=== PATIENT | female | born 1970 ===

== ENCOUNTER 2017-04-17 23:19 | Inpatient (IN) | payer OTHER ==
[~2017-04-17] VITALS: Ht 157.5 cm; Wt 80.1 kg
[2017-04-18] VITALS (18 sets, daily range): BP systolic 85–114; BP diastolic 47–67
--- NOTE | 2017-04-18 06:24 | History & Physical Report ---
Admission Admit Date 04/18/17 Information Source Information Source: Spouse/Partner Reliability: Fair History Chief Complaint altered mental status History of Present Illness Patient is a 46 year old female with a pmh of non-alcoholic liver cirrhosis and diabetes mellitus that is presenting with altered mental status that began this morning. Patient has been alternating between being ill and well for the past couple of weeks. The describes the patient coming home from work usually early due to slurred speech and altered mental status. The patient is usually minimally responsive and sleeps throughout the night and wakes up in her usual state of mind. This has been going on for the past few weeks, and patient when she wakes up in the morning is usually more alert than before. Patient has been continuing like this for the past few weeks and she has been normalizing by the morning time. Patient has been continuing like this for quite some time but this has not caused any major problems. Patient last night was seen to have the same occurence happen, and when she woke up in the morning the patient was equally confused and non responsive. She was complaining that she couldnt see and was not making sense. Patient was brought to the ER, and the patient was found to be acutely confused, and later found to be minimally responsive and hypotensive. Patient was so hypotensive that a central line was placed and patient was started on vasopressors. It was then decided that the patient should be admitted to the ICU. Patient History 1. Hyperammonemia 2. Liver cirrhosis 3. Hypotension 4. Altered mental status Social History Patient lives at home on the [facility] with her and two children. She manages all her ADLs independetly. She does not smoke, drink or use illicit substances. 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 Family History MOTHER Diabetes Advance Directive None Medications and Allergies Medications Home Medications Ferrous sulfate 325 mg daily Sucralafate 1 gram daily omeprazole 40 mg daily forosemide 40 mg daily nadolol 40 mg daily spiranolactone 100 mg daily Current Medications Sig/[place] Start time Last Medication Dose Route Stop Time Status Admin Hydromorphone HCl 1 MG Q6H PRN 04/18 600 UNV IV Lactulose 30 GM TID 04/18 600 UNV GA Pantoprazole Sodium 40 MG DAILY@00 04/18 600 UNV IV Sodium Chloride 1,000 ML ASDIRECTED 06/04 0600 UNV IV Allergies Coded Allergies: Amoxicillin (From AUGMENTIN) (04/18/17) Aspirin (RASH 04/18/17) Clavulanic Acid (From AUGMENTIN) (04/18/17) Physical Exam Vital Signs / I&Os Vital Signs Date Time Temp Pulse Resp B/P Pulse O2 O2 Flow FiO2 Ox Delivery Rate 04/18 611 97.3 57 11 96/49 99 Room Air General Appearance - obtunded, no acute distress, withdraws from pain, answers non-meaningully to voice HEENT Atraumatic, PERRLA, Moist mucous membranes, - poor dentition Lungs Clear to auscultation, Normal air movement Neck No JVD, No masses, No thyromegaly Cardiovascular Regular rate and rhythm, No murmurs, gallops, rubs Abdomen Soft, - distended abdomen - positive fluid wave - no evidence of bruising Extremities No clubbing, Normal pulses, No tenderness, Osvaldo's sign negative, - trace edema in lower extremities Skin No Breakdown Neurological Sensation intact, Cranial nerves intact, No lateralizing signs Psych/Mental Status Confused LAB Results Laboratory Tests 04/17 04/17 04/17 04/18 2330 2330 2350 0000 Chemistry Plasma Sodium (136 - 145 mmol/L) 138 Plasma Potassium (3.5 - 5.1 mmol/L) 4.3 Plasma Chloride (98 - 107 mmol/L) 105 CO2 (Enzymatic) (21 - 32 mmol/L) 25 BUN (7 - 18 mg/dL) 24 Creatinine (0.6 - 1.3 mg/dL) 2.1 Est GFR ( Amer) (mL/min) 32.38 Est GFR (Non-Af Amer) (mL/min) 26.72 Glucose (70 - 110 mg/dL) 142 Plasma Calcium (8.5 - 10.1 mg/dL) 8.4 Total Bilirubin (0.0 - 1.0 mg/dL) 1.5 AST (15 - 37 U/L) 31 ALT (12 - 78 U/L) 24 Alkaline Phosphatase (46 - 116 U/L) 135 Ammonia (11 - 32 umol/L) 115 Total Protein (6.4 - 8.2 g/dL) 7.6 Albumin (3.3 - 5.0 g/dL) 2.1 Amylase (25 - 115 U/L) 34 Lipase (73 - 393 U/L) 160 Coagulation INR (0.8 - 1.2) 1.2 APTT (24 - 34 SECONDS) 29 Hematology WBC (4.5 - 11.5 K/uL) 4.0 RBC (4.00 - 5.20 M/uL) 3.22 Hgb (12.0 - 16.0 gm/dL) 9.7 Hct (36.0 - 46.0 %) 29.1 MCV (80 - 100 fL) 90 MCH (26 - 34 pg) 30 RDW (11.6 - 14.8 %) 14.7 Gran % (53 - 90) 73.7 Lymph % (Auto) (25 - 40 %) 19.5 [place] % (Auto) (3 - 14 %) 6.8 Plt Count, EDTA (150 - 400 K/uL) 83 PUBS MCHC (31 - 37 g/dL) 33 Serology Hepatitis A Ab Total Pending Hep Bs Antigen Pending Hep Bs Antibody Pending Hep B Core Total Ab Pending Hepatitis C Antibody Pending Toxicology Urine Opiates Screen (NEGATIVE) NEGATIVE Urine Methadone Screen (NEGATIVE) NEGATIVE Ur Barbiturates Screen (NEGATIVE) NEGATIVE U Amphetamin/Meth Scrn (NEGATIVE) NEGATIVE MDMA (Ecstasy) Screen (NEGATIVE) NEGATIVE U Benzodiazepines Scrn (NEGATIVE) NEGATIVE Urine Cocaine Screen (NEGATIVE) NEGATIVE U Cannabinoids Screen (NEGATIVE) NEGATIVE Urines Urine Color YELLOW Urine Appearance CLEAR Urine pH (5.0 - 8.0) 6.0 Ur Specific [place] (1.010 - 1.030) 1.010 Urine Protein (NEGATIVE) NEGATIVE Urine Ketones (NEGATIVE) NEGATIVE Urine Blood (NEGATIVE) NEGATIVE Urine Nitrite (NEGATIVE) NEGATIVE Urine Bilirubin (NEGATIVE) NEGATIVE Urine Urobilinogen (0.2 - 1.0 EU/dL) 0.2 Ur Leukocyte Esterase (NEGATIVE) NEGATIVE Urine RBC (0 - 1 rbc/hpf) 0-1 Urine WBC (0 - 1 wbc/hpf) 0-1 Ur Epithelial Cells (0 - 5 EPI/hpf) 1-3 Urine Bacteria (NONE SEEN) NONE SEEN Urine Glucose (NEGATIVE) NEGATIVE Urine Comment CULT NOT INDICATED Assessment and Plan Problem List 1. Altered mental status Plan - 1 day history of altered mental status - most likely due to hyper ammonia - pt is responsive to pain and voice - currently will treat as hyper ammonia - no evidence of other neurological deficits 2. Hyperammonemia Plan - never treated - pt has never taken lactulose - elevated ammonia secondary to non-alcoholic liver cirrhosis 3. Liver cirrhosis Plan - pt has an established history of liver cirrhosis - in the process of being treated however pt has just done genotyping - pt on spiranolactone, ferrous sulfate, nadalol, furosemide however patient has never taken lactulose or rifaxamin - will begin ammonia reduction treatment 4. Hypotension Plan - pt has been getting progressively more hypotensive through her hosptial stay - there is no evidence of blood loss, infection, or neuroloical dysfunction which can be leading to this - will obtain lactate, procalcitonin, blood cultures - will place on vasopressors - central line placed and confirmed - will continuously monitor
--- NOTE | 2017-04-18 07:09 | Progress Note ---
Subjective General Note Date: April 18, 2017 Admission Date: April 18, 2017 Hospital Day: 1 PCP: Unknown Status: Inpatient, CCU Advanced Directive: FULL CODE Room: 304 Admission History: The patient is a 46-year-old female with a significant past medical history of cirrhosis secondary to hepatitis C, esophageal varices, who presented to [facility] emergency department on the day of admission secondary to complaints of mental status changes. [facility] ER evaluation was consistent with hepatic encephalopathy with associated hypotension. Secondary to the above, the patient was admitted by Andrew Seo M.D. for further evaluation and treatment. For other history present illness, past medical history, family history, social history, review of systems, and admission physical examination please see the patient's history and physical examination and ER visit note in the patient's medical record. Subjective: The patient remains confused and minimally responsive. Slight verbal interaction intermittently. Patient requests: None Medications and Allergies Medications Current Medications Sig/Albina Start time Last Medication Dose Route Stop Time Status Admin Lactulose 30 GM TID 04/18 645 AC HI Pantoprazole Sodium 40 MG DAILY@0600 04/18 645 AC IV Hydromorphone HCl 1 MG Q6H PRN 04/18 600 AC IV Sodium Chloride 1,000 ML ASDIRECTED 04/18 600 AC IV Allergies Coded Allergies: Amoxicillin (From AUGMENTIN) (Severe, 04/18/17) Aspirin (Severe, RASH 04/18/17) Clavulanic Acid (From AUGMENTIN) (Severe, 04/18/17) Physical Exam Vital Signs / I&Os Vital Signs Date Time Temp Pulse Resp B/P Pulse O2 O2 Flow FiO2 Ox Delivery Rate 04/18 623 Room Air 04/18 611 97.3 57 11 96/49 99 Room Air General Appearance Cooperative, No acute distress, lethargic, minimally responsive to verbal commands/questioning. Confused Lungs Clear to auscultation, Normal air movement Cardiovascular Regular rate and rhythm, Normal S1 and S2 Abdomen Normal bowel sounds, Soft, No tenderness Extremities No cyanosis, No clubbing Neurological Cranial nerves intact, Strength 5/5 x4 ext's, No lateralizing signs Psych/Mental Status Confused, lethargic. LAB Results Laboratory Tests 04/18 04/17 04/17 04/17 0000 2350 2330 2330 Chemistry Plasma Sodium (136 - 145 mmol/L) 138 Plasma Potassium (3.5 - 5.1 mmol/L) 4.3 Plasma Chloride (98 - 107 mmol/L) 105 CO2 (Enzymatic) (21 - 32 mmol/L) 25 BUN (7 - 18 mg/dL) 24 Creatinine (0.6 - 1.3 mg/dL) 2.1 Est GFR ( Amer) (mL/min) 32.38 Est GFR (Non-Af Amer) (mL/min) 26.72 Glucose (70 - 110 mg/dL) 142 Plasma Calcium (8.5 - 10.1 mg/dL) 8.4 Total Bilirubin (0.0 - 1.0 mg/dL) 1.5 AST (15 - 37 U/L) 31 ALT (12 - 78 U/L) 24 Alkaline Phosphatase (46 - 116 U/L) 135 Ammonia (11 - 32 umol/L) 115 Total Protein (6.4 - 8.2 g/dL) 7.6 Albumin (3.3 - 5.0 g/dL) 2.1 Amylase (25 - 115 U/L) 34 Lipase (73 - 393 U/L) 160 Coagulation INR (0.8 - 1.2) 1.2 APTT (24 - 34 SECONDS) 29 Hematology WBC (4.5 - 11.5 K/uL) 4.0 RBC (4.00 - 5.20 M/uL) 3.22 Hgb (12.0 - 16.0 gm/dL) 9.7 Hct (36.0 - 46.0 %) 29.1 MCV (80 - 100 fL) 90 MCH (26 - 34 pg) 30 RDW (11.6 - 14.8 %) 14.7 Gran % (53 - 90) 73.7 Lymph % (Auto) (25 - 40 %) 19.5 [place] % (Auto) (3 - 14 %) 6.8 Plt Count, EDTA (150 - 400 K/uL) 83 PUBS MCHC (31 - 37 g/dL) 33 Serology Hepatitis A Ab Total Pending Hep Bs Antigen Pending Hep Bs Antibody Pending Hep B Core Total Ab Pending Hepatitis C Antibody Pending Toxicology Urine Opiates Screen (NEGATIVE) NEGATIVE Urine Methadone Screen (NEGATIVE) NEGATIVE Ur Barbiturates Screen (NEGATIVE) NEGATIVE U Amphetamin/Meth Scrn (NEGATIVE) NEGATIVE MDMA (Ecstasy) Screen (NEGATIVE) NEGATIVE U Benzodiazepines Scrn (NEGATIVE) NEGATIVE Urine Cocaine Screen (NEGATIVE) NEGATIVE U Cannabinoids Screen (NEGATIVE) NEGATIVE Urines Urine Color YELLOW Urine Appearance CLEAR Urine pH (5.0 - 8.0) 6.0 Ur Specific [place] (1.010 - 1.030) 1.010 Urine Protein (NEGATIVE) NEGATIVE Urine Ketones (NEGATIVE) NEGATIVE Urine Blood (NEGATIVE) NEGATIVE Urine Nitrite (NEGATIVE) NEGATIVE Urine Bilirubin (NEGATIVE) NEGATIVE Urine Urobilinogen (0.2 - 1.0 EU/dL) 0.2 Ur Leukocyte Esterase (NEGATIVE) NEGATIVE Urine RBC (0 - 1 rbc/hpf) 0-1 Urine WBC (0 - 1 wbc/hpf) 0-1 Ur Epithelial Cells (0 - 5 EPI/hpf) 1-3 Urine Bacteria (NONE SEEN) NONE SEEN Urine Glucose (NEGATIVE) NEGATIVE Urine Comment CULT NOT INDICATED Microbiology Date/Time Procedure - Status Source Growth 04/18 UNK MRSA Screen - ORD NOSE 04/18 UNK Blood Culture - ORD BLOOD 04/18 UNK Blood Culture - ORD BLOOD Assessment and Plan Problem List 1. Hepatic encephalopathy Status Acute Onset Date Unknown Plan -Patient presents with findings consistent with hepatic encephalopathy. -Serum ammonia level significantly elevated at 115 -Lactulose 20 g by mouth 3 times a day -Rifaximin 400 mg by mouth 3 times a day -Consider GoLYTELY if patient taking well orally -Monitor 2. Hypotension Plan -Patient with hypotension requiring aggressive fluid therapy/pressor agents- Levophed -Continue IV fluid/Levophed -BP 108/62 mmHg -No signs of sepsis/infection -No clear etiology of hypotension other than wanting contraction -Monitor 3. Liver cirrhosis Plan -Patient with history of cirrhosis -Hepatic encephalopathy as noted above -Continue lactulose, rifaximin, Aldactone/Lasix as necessary, nadolol. 4. Esophageal varices Status Chronic Onset Date Unknown Plan -No evidence of bleeding at this time -Monitor serial H&H -Continue outpatient therapy Current status: Critical, unstable Anticipated discharge date: Anticipated discharge in 3-4 days Anticipated discharge placement: Home Patient care time: Time in chart review, patient interview, physical exam, CPOE, and care documentation: 35 mins Visit to patient today: 2 Complexity of care: High DVT prophylaxis: SCD E&M Codes Rounding: Inpt-High/[id number]
--- NOTE | 2017-04-18 07:30 | DIAGNOSTIC IMAGING REPORT ---
PROCEDURE: CT ABDOMEN/PELVIS W/O CONTRAST INDICATION: ABDOMINAL DISTENTION TECHNIQUE: Axial CT images were obtained through the abdomen and pelvis without IV contrast. Coronal and sagittal reformations were created. Contrast not used given GFR below 30. COMPARISON: None. FINDINGS: Small left pleural effusion. Mild bibasilar atelectasis. Small hiatal hernia. Probable small esophageal varices. Normal sized heart. The gallbladder surgically absent. The right lobe of the liver is diminutive and the left and caudate lobe are mildly hypertrophic. Recanalized umbilical vein. Moderate heterogeneity throughout the hepatic parenchyma. Slight parenchymal heterogeneity in the enlarged spleen posteriorly. The spleen is enlarged measuring 12.8 x 15.8 cm. Moderate perihepatic and perisplenic ascites. Unenhanced appearance of adrenal glands, pancreas, kidneys, and retroperitoneal vessels is grossly normal. There is fat stranding in the congestion throughout the omentum and mesenteric fat. Occasional fluid levels are seen in nondistended bowel loops. There is an umbilical hernia with a narrow neck measuring about 10 mm which contains ascites fluid. The hernia sac measures approximately 8.6 x 4.9 x 7.0 cm. There is a Manuel catheter in the urinary bladder. Moderate pelvic ascites. The unenhanced appearance of the uterus, ovaries, pelvic vessels, and pelvic bowel loops is normal. Normal appendix. No suspicious pelvic mass. Intact osseous structures. IMPRESSION: 1. Chronic-appearing findings of hepatic cirrhosis and portal hypertension including ascites. 2. Heterogeneous hepatic parenchyma which can be seen in nodular regeneration or hepatic neoplasm. Correlation with AFP level and cross-sectional imaging (dynamic MRI or three phase CT) with contrast when the patient is able is recommended. 3. Fluid-containing, narrow necked umbilical hernia. 4. Upper abdominal varicosities and probable esophageal varices. 5. Preliminary report by Dr. Kelvin Garcia of [facility] radi[facility]. All CT scans at this facility use dose modulation, iterative reconstruction, and/or weight-based dosing when appropriate to reduce radiation dose to as low as reasonably achievable.
--- NOTE | 2017-04-18 07:34 | DIAGNOSTIC IMAGING REPORT ---
PROCEDURE: XR CHEST 1 VIEW INDICATION: COUGH TECHNIQUE: Single view chest. 02:07 hours COMPARISON: None. FINDINGS: Right-sided IJ central venous line is present. The tip is low, within the right atrioventricular junction region. The right diaphragm is asymmetrically elevated crowding of the bronchovascular markings. No significant central venous congestion. The visible lung guevara are clear. There are probable bibasilar atelectatic changes, minimal. Surgical clips in the gallbladder fossa. Intact osseous structures. IMPRESSION: 1. Low position of right central line. This should be withdrawn. Follow-up film has been acquired. 2. Asymmetric right diaphragm elevation. 3. Probable mild bibasilar atelectasis.
--- NOTE | 2017-04-18 07:35 | DIAGNOSTIC IMAGING REPORT ---
PROCEDURE: XR CHEST 1 VIEW INDICATION: COUGH TECHNIQUE: Single view chest. 04:31 hours COMPARISON: 02:07 hours FINDINGS: The right IJ central venous line has been withdrawn and the tip is now at the distal SVC. Cardiomediastinal contour and central vessels are stable. Right diaphragm remains elevated. No new central venous congestion. Probable bibasilar atelectatic changes. Upper lung zones are aerated. Intact osseous structures. IMPRESSION: 1. Improved position of right IJ central venous line. 2. Stable heart and lungs with elevated right hemidiaphragm.
[2017-04-18] MEDS ORDERED: FE GLUCONATE325 MG PO (07:36)
[2017-04-18] MEDS ORDERED: FUROSEMIDE40 MG PO (07:37)
[2017-04-18] MEDS ORDERED: CORGARD20 MG PO (07:37)
[2017-04-18] MEDS ORDERED: PRILOSEC20 MG PO (07:38)
[2017-04-18] MEDS ORDERED: SPIRONOLACTONE25 MG PO (07:38)
[2017-04-18] MEDS ORDERED: CARAFATE EQUIVAL1 GM PO (07:39)
--- NOTE | 2017-04-18 07:42 | ED DISCHARGE INSTRUCTIONS ---
Patient: ZULY MATTHEW General Instructions [facility] VisitID: [id number] [address] [place] [address] 46y, F Registration Date/Time: 04/17/2017 Acute mental status change with stupor. Primary biliary cirrhosis of the liver. (Hyperammonianemia). (Electronically signed by Kyree Bourgeois Dr. 04/18/2017 7:41)
--- NOTE | 2017-04-18 07:42 | ED MAR SUMMARY ---
..... Medication Administration Record [facility] [address] [place] [address] Patient: ZULY MATTHEW Visit ID: [id number] 46y, F Weight: 90.7 kg Height/Length: 61 in BMI: 37.8 ALLERGIES: Augmentin, Aspirin Start 23:45 04/17/2017 Lucina Ratliff R.N., Stop 00:45 04/18/2017 Lucina Ratliff R.N. Medication Administered: IV NS (SALINE), Dose: IV Fluids over 1 hour(s), Bolus: 1000 mL wide open, Dispensed: 1000 mL bag, Site: #1 right AC. Medication Ordered: IV NS : initial bolus none -, then 1000 mL/hr for X1 (NOW). Given 01:06 04/18/2017 Lucina Ratliff R.N. Medication Administered: ZOFRAN [IVP] (ONDANSETRON HCL), Dose: 4 mg IVP over 2 minute(s), Site: #1 right AC. Medication Ordered: Zofran IV 4 mg (NOW). Start 02:38 04/18/2017 Lucina Ratliff R.N., Continued Upon Admission 05:44 04/18/2017 Lucina Ratliff R.N. Medication Administered: LEVOPHED [IV DRIP] (NOREPINEPHRINE BITARTRATE), Dose: 0.5 mcg Drip IV over 135 hour(s), Dispensed: 250 mL bag, Site: #2 central line(see procedure note). Medication Ordered: Levophed Drip IV : 0.5-12 mcg/min (HIGH ALERT MEDICATION, NOW). Start 03:10 04/18/2017 Lucina Ratliff R.N., Continued Upon Disposition 05:47 04/18/2017 Lucina Ratliff R.N. Medication Administered: IV NS (SALINE), Dose: IV Fluids over 5 hour(s), Rate: 200 mL/hr, Dispensed: 1000 mL bag, Site: #2 central line(see procedure note). Medication Ordered: IV NS with Normal Saline 1 Liter: initial bolus none -, then 200 mL/hr for X1 (NOW). Start 05:49 04/18/2017 Lucina Ratliff R.N., Continued Upon Admission 05:52 04/18/2017 Lucina Ratliff R.N. Medication Administered: CEFTRIAXONE [IVPB], Dose: 1 gm IVPB over 20 minute(s), Dispensed: 50 mL bag, Site: #1 right . Medication Ordered: Ceftriaxone IV 1 gm/50mL (NOW).
--- NOTE | 2017-04-18 07:42 | ED MED RECONCILIATION SUMMARY ---
Patient: ZULY MATTHEW Medication Reconciliation Report [facility] VisitID: [id number] [address] [place] [address] 46y, F Registration Date/Time: 04/17/2017 Weight: 90.7 kg Height/Length: 61 in. BMI: 37.8 ALLERGIES: Aspirin, Augmentin The patient's Home Medications are listed below: THE FOLLOWING MEDICATIONS NEED TO BE RECONCILED: Ferrous Gluconate Oral (325 (36 Fe) mg) 1 tablet Furosemide Oral (40 mg) 1 tablet, daily Nadolol Oral (20 mg) 2 tablets, daily Omeprazole Oral 20 mg, 2x a day Spironolactone Oral (100 mg) 1 tablet, daily Sucralfate Oral (1 gm) 1 tablet, 4x a day The source(s) of the original Home Medication information: Not obtained. The following Medications were given to the patient in the Emergency Department: IV NS IV Fluids bolus 1000 mL wide open, administered: 04/17/2017 11:45:00 PM Zofran [IVP] IVP 4 mg, administered: 04/18/2017 1:06:00 AM Levophed [IV DRIP] Drip IV bolus 0, then 0.5 mcg, administered: 04/18/2017 2:38:00 AM IV NS IV Fluids bolus 0, then 200 mL/hr, administered: 04/18/2017 3:10:00 AM Ceftriaxone [IVPB] IVPB bolus 0, then 1 gm, administered: 04/18/2017 5:49:00 AM The following Medications were prescribed to the patient: None.
--- NOTE | 2017-04-18 07:42 | ED DISCHARGE INSTRUCTIONS ---
Patient: ZULY MATTHEW General Instructions [facility] VisitID: [id number] [address] [place] [address] 46y, F Registration Date/Time: 04/17/2017 Acute mental status change with stupor. Primary biliary cirrhosis of the liver. (Hyperammonianemia). (Electronically signed by Kyree Bourgeois Dr. 04/18/2017 7:41)
--- NOTE | 2017-04-18 07:42 | ED MAR SUMMARY ---
..... Medication Administration Record [facility] [address] [place] [address] Patient: ZULY MATTHEW Visit ID: [id number] 46y, F Weight: 90.7 kg Height/Length: 61 in BMI: 37.8 ALLERGIES: Augmentin, Aspirin Start 23:45 04/17/2017 Lucina Ratliff R.N., Stop 00:45 04/18/2017 Lucina Ratliff R.N. Medication Administered: IV NS (SALINE), Dose: IV Fluids over 1 hour(s), Bolus: 1000 mL wide open, Dispensed: 1000 mL bag, Site: #1 right AC. Medication Ordered: IV NS : initial bolus none -, then 1000 mL/hr for X1 (NOW). Given 01:06 04/18/2017 Lucina Ratliff R.N. Medication Administered: ZOFRAN [IVP] (ONDANSETRON HCL), Dose: 4 mg IVP over 2 minute(s), Site: #1 right AC. Medication Ordered: Zofran IV 4 mg (NOW). Start 02:38 04/18/2017 Lucina Ratliff R.N., Continued Upon Admission 05:44 04/18/2017 Lucina Ratliff R.N. Medication Administered: LEVOPHED [IV DRIP] (NOREPINEPHRINE BITARTRATE), Dose: 0.5 mcg Drip IV over 135 hour(s), Dispensed: 250 mL bag, Site: #2 central line(see procedure note). Medication Ordered: Levophed Drip IV : 0.5-12 mcg/min (HIGH ALERT MEDICATION, NOW). Start 03:10 04/18/2017 Lucina Ratliff R.N., Continued Upon Disposition 05:47 04/18/2017 Lucina Ratliff R.N. Medication Administered: IV NS (SALINE), Dose: IV Fluids over 5 hour(s), Rate: 200 mL/hr, Dispensed: 1000 mL bag, Site: #2 central line(see procedure note). Medication Ordered: IV NS with Normal Saline 1 Liter: initial bolus none -, then 200 mL/hr for X1 (NOW). Start 05:49 04/18/2017 Lucina Ratliff R.N., Continued Upon Admission 05:52 04/18/2017 Lucina Ratliff R.N. Medication Administered: CEFTRIAXONE [IVPB], Dose: 1 gm IVPB over 20 minute(s), Dispensed: 50 mL bag, Site: #1 right . Medication Ordered: Ceftriaxone IV 1 gm/50mL (NOW).
--- NOTE | 2017-04-18 07:42 | ED CLINICAL REPORT ---
Clinical Report - Physicians/Mid Levels [facility] [address] [place] [address] 04/17/2017 23:23 Patient: ZULY MATTHEW Time Seen: 23:39; initial patient contact. Arrived- By private vehicle. Historian- family. HISTORY OF PRESENT ILLNESS Chief Complaint: CHANGED MENTAL STATUS. The patient has been disoriented and is described as having decreased responsiveness. This started today and is still present. It was gradual in onset and has been intermittent. No alcohol recently, recent drug use or medication given prior to arrival. The patient has had difficulty walking. Usually is alert and oriented X3 and usually has normal mobility. Similar symptoms previously: Many times. Recent medical care: The patient was seen recently by a health care provider (Hospitalized in [place] for liver failure, family states she has cirrhosis possibly due to hepatitis). REVIEW OF SYSTEMS No fever, headache, head injury, dizziness or blurred vision. No abdominal pain, nausea, diarrhea or vomiting. All systems otherwise negative, except as recorded above. PAST HISTORY ( Diabetes Mellitus GI Bleeding. Liver disease. SURGERIES: Cholecystectomy). Medications: Ferrous Gluconate Oral (Tablet 325 (36 Fe) mg) 1 tablet. Omeprazole Oral 20 mg, 2x a day. Sucralfate Oral (Tablet 1 gm) 1 tablet, 4x a day. Nadolol Oral (Tablet 20 mg) 2 tablets, daily. Furosemide Oral (Tablet 40 mg) 1 tablet, daily. Spironolactone Oral (Tablet 100 mg) 1 tablet, daily. Allergies: Aspirin. Definite Severe(rash) Augmentin. SOCIAL HISTORY Never smoker. No alcohol use or drug use. ADDITIONAL NOTES The nursing notes have been reviewed. PHYSICAL EXAM Vital Signs: 04/18/2017 00:19 BP: 85/47. HR: 99. RR: 18. O2 saturation: 100%. Pain level now: 0. 04/17/2017 23:55 BP: 91/54. HR: 80. RR: 16. O2 saturation: 100%. Pain level now: 0. 04/17/2017 23:26 BP: 92/53. HR: 83. RR: 16. O2 saturation: 100%. Temp: 98.2 F. Pain level now: 0/10. Have been reviewed. Hypotensive. Heart rate normal. Respiratory rate normal. Temperature normal. Oxygen saturation normal. Appearance: The patient is obtunded. ENT: Dry mucous membranes present. Neck: Normal inspection. CVS: Normal heart rate and rhythm. Heart sounds normal. Respiratory: No respiratory distress. Breath sounds normal. Abdomen: Soft. Mild tenderness diffusely. Mild hepatomegaly. Back: Normal inspection. Rectal: Rectal exam normal. (Heme negative). Skin: Skin warm and dry. Extremities: No lower extremity edema. Neuro: Altered mental status: lethargic. LABS, X-RAYS, AND EKG EKG: EKG time: (2347). No acute process. No acute ischemia. Normal EKG. Normal sinus rhythm. Rate: 74. Normal P waves. Normal GREGOR. Normal QRS complex. Normal axis. Normal ST and T waves. Prolonged QTc (475). Prior EKG unavailable. The study has been interpreted contemporaneously by me. The study has been independently viewed by me. The EKG appears to be a good tracing. I agree with and confirm the computer reading of the EKG. Interpretation time: 2347. Chest X-ray: (No PTX, Central line tip in RA). Views: AP. The X-rays were independently viewed by me and interpreted contemporaneously by me. Prior films were not available for comparison. Interpretation time: 204. Chest X-ray #2: (Tip of TLC in distal SVC). Views: AP. The X-rays were independently viewed by me and interpreted contemporaneously by me. A comparison with prior films reveals that the findings are improved. CT Abdomen - Pelvis: Advanced cirrhosis mod-lge ascites 8.5 cm ventral wall hernia w/ fluid Small, left pleural effuasion. Study type: upper abdomen; lower abdomen; pelvis. Abdomen - pelvic CT performed without contrast. The study was independently viewed by me, interpreted by the radiologist and discussed with the radiologist. Prior studies were not available for comparison. Laboratory Tests: UA-Culture if indicated: (JAHAIRA: 04/17/2017 23:50) ( MsgRcvd 04/18/2017 00:30) Final results Test Result Flag Units (Reference) URINE COLOR YELLOW URINE APPEARANCE CLEAR URINE GLUCOSE NEGATIVE (NEGATIVE) URINE BILIRUBIN NEGATIVE (NEGATIVE) URINE KETONE NEGATIVE (NEGATIVE) URINE SPECIFIC GRAVITY 1.010 (1.010-1.030) URINE PH 6.0 (5.0-8.0) URINE PROTEIN NEGATIVE (NEGATIVE) URINE UROBILINOGEN 0.2 EU/dL (0.2-1.0) URINE NITRITE NEGATIVE (NEGATIVE) URINE BLOOD NEGATIVE (NEGATIVE) URINE LEUK ESTERASE NEGATIVE (NEGATIVE) URINE RBC 0-1 rbc/hpf (0-1) URINE WBC 0-1 wbc/hpf (0-1) URINE EPITHELIAL CELLS 1-3 EPI/hpf (0-5) URINE BACTERIA NONE SEEN (NONE SEEN) URINE COMMENT CULT NOT INDICATED URINE CULTURES ARE SET-UP BASED ON THE FOLLOWING CRITERIA:POSITIVE NITRITEPOSITIVE LEUKOCYTE ESTERASEGREATER THAN 10 WHITE BLOOD CELLSMODERATE (2+) OR GREATER BACTERIA CBC w Diff: (JAHAIRA: 04/17/2017 23:30) ( [facility] 04/17/2017 23:59) Final results Test Result Flag Units (Reference) WHITE BLOOD COUNT 4.0 L K/uL (4.5-11.5) RED BLOOD COUNT 3.22 L M/uL (4.00-5.20) HEMOGLOBIN 9.7 L gm/dL (12.0-16.0) HEMATOCRIT 29.1 L % (36.0-46.0) MEAN CELL VOLUME 90 fL (80-100) MEAN CORPUSCULAR HGB 30 pg (26-34) MEAN CORPUSCULAR HGB CONC 33 g/dL (31-37) RED CELL DISTRIBUTION WIDTH 14.7 % (11.6-14.8) PLATELET COUNT 83 L K/uL (150-400) LYMPH % 19.5 L % (25-40) MONO % 6.8 % (3-14) GRANULOCYTE % 73.7 (53-90) PT with INR: (JAHAIRA: 04/17/2017 23:30) ( [facility] 04/17/2017 23:55) Final results Test Result Flag Units (Reference) INR 1.2 (0.8-1.2) Low Intensity Therapy: INR 1.5-2.0 PT range 18.5-23.1Mod.Intensity Therapy: INR 2.0-3.0 PT range 23.1-31.5High Intensity Therapy: INR 2.5-3.5 PT range 27.4-35.5High Intensity Therapy 2: INR 3.0-4.0 PT range 31.5-39.3 APTT 29 SECONDS (24-34) CMP: (JAHAIRA: 04/17/2017 23:30) ( MsgRcvd 04/18/2017 00:10) Final results Test Result Flag Units (Reference) GLUCOSE 142 H mg/dL (70-110) BUN 24 H mg/dL (7-18) CREATININE 2.1 H mg/dL (0.6-1.3) Estimated GFR 26.72 mL/min Estimated GFR- 32.38 mL/min Note: Persistent reduction over 3 months in eGFR<60 mL/min/1.73 m2 defines CKD. Patients with eGFR values>=60 mL/min/1.73 m2 may also have CKD if evidence ofpersistent proteinuria. Additional information may be foundat [email or web address].org. SODIUM 138 mmol/L (136-145) POTASSIUM 4.3 mmol/L (3.5-5.1) CHLORIDE 105 mmol/L (98-107) CARBON DIOXIDE 25 mmol/L (21-32) CALCIUM 8.4 L mg/dL (8.5-10.1) TOTAL PROTEIN 7.6 g/dL (6.4-8.2) ALBUMIN 2.1 L g/dL (3.3-5.0) BILIRUBIN, TOTAL 1.5 H mg/dL (0.0-1.0) ALKALINE PHOSPHATASE 135 H U/L (46-116) AST (SGOT) 31 U/L (15-37) ALT (SGPT) 24 U/L (12-78) LIPASE 160 U/L (73-393) AMYLASE 34 U/L (25-115) . PROGRESS AND PROCEDURES Central Line Placement: A standardized protocol was used for insertion. A central line was placed in the right internal jugular vein. Per protocol, time-out completed immediately before the procedure. The risks of the procedure, benefits and alternatives were explained. Bloodstream infection prevention education was provided. Consent was obtained and precluded by urgency of clinical situation. O2 administered. Placed on pulse oximeter and account manager relief. Placed in Trendelenburg. Hand hygiene observed, sterile barrier precautions adhered to (cap, mask, gown, gloves and large sterile sheet) and chlorhexidine skin antisepsis used. Local anesthetic infiltrated. Triple lumen central line placed using ultrasound guidance with sterile technique and Seldinger technique. Good blood return observed. Catheter was secured. Antibiotic ointment applied. Dressing applied. The patient was clinically stable following the procedure. Post-procedure X-ray showed no pneumothorax and poor position of catheter tip. Estimated blood loss: 10 mL. ( Catheter withdrawn 6 cm w/ sterile technique. Repeat film showed appropriate positioning.). Critical care performed (120 minutes). Time is exclusive of separately billable procedures. Time includes: direct patient care, patient reassessment, coordination of patient care, interpretation of data (laboratory data, pulse oximetry and chest xrays), review of patient's medical records, medical consultation, family consultation regarding treatment decisions and documentation of patient care. Procedures excluded from critical care time: central intravenous line placement- see progress notes. The patient required critical care due to the acute impairment of vital organ systems (cardiovascular, hepatic, renal and central nervous system) and a high probability of life threatening deterioration. Numerous emergent interventions were required to prevent life threatening deterioration. Discussed case with hospitalist, (Dr. Seo. Evaluated pt in ED and will admit to the ICU.). Disposition: Admitted to the Critical Care Unit. Admit decision based on need for additional testing, observation, IV hydration and medications, intensive care and stabilization of condition. CLINICAL IMPRESSION Acute mental status change with stupor. Primary biliary cirrhosis of the liver. (Hyperammonianemia). (Electronically signed by Kyree Bourgeois Dr. 04/18/2017 7:41)
--- NOTE | 2017-04-18 07:42 | ED NURSING NOTES ---
Clinical Report - Nurses [facility] [address] [place] [address] 04/17/2017 23:23 Patient: ZULY MATTHEW TRIAGE Triage time 23:20. Acuity: LEVEL 2. Chief Complaint: ALTERED MENTAL STATUS and CONFUSED. --23:39 Lucina Ratliff R.N. 23:26 04/17/17. BP: 92/53 taken on the left arm, while lying. HR: 83 (regular and normal rate). RR: 16 (regular and unlabored). O2 saturation: 100% on room air. Temp: 98.2 F (oral). Pain level now: 0/10. --23:39 Lucina Ratliff R.N. Weight: 90.7 kg stated. Height/Length: 61 inches Per Patient. BMI: 37.8. --23:28 Lucina Ratliff R.N. Medications Spironolactone Oral (Tablet 100 mg) 1 tablet, daily. --23:31 Lucina Ratliff R.N. Furosemide Oral (Tablet 40 mg) 1 tablet, daily. --23:31 Lucina Ratliff R.N. Nadolol Oral (Tablet 20 mg) 2 tablets, daily. --23:31 Lucina Ratliff R.N. Sucralfate Oral (Tablet 1 gm) 1 tablet, 4x a day. --23:32 Lucina Ratliff R.N. Omeprazole Oral 20 mg, 2x a day. --23:32 Lucina Ratliff R.N. Ferrous Gluconate Oral (Tablet 325 (36 Fe) mg) 1 tablet. --23:33 Lucina Ratliff R.N. Allergies Aspirin. Definite Severe(rash) --23:33 Lucina Ratliff R.N. Augmentin. --23:33 Lucina Ratliff R.N. History Arrived by private vehicle. Historian: patient and family. Accompanied by family. Primary physician (sendy). This started at about 1200 today. Patient was last known well (0800 AM). ( family reports pt have difficulty with sight and finding words and "acting right" states gets like this sometimes). She has had trouble walking (since 0800 AM). PAST MEDICAL HX: Immunizations: up-to-date. Last normal menstrual period- March 2017. SOCIAL HX: Never smoker. No alcohol use or drug use. No infectious disease exposure. ABUSE ASSESSMENT: No report of abuse. SELF HARM ASSESSMENT: A self harm assessment was performed. The patient answered "no" to the question "Have you recently felt down, depressed, or hopeless?", "Have you noticed less interest or pleasure in doing things?", "Do you have thoughts of harming or killing yourself?", "Are you here because you tried to hurt yourself?", "Have you ever tried to hurt yourself before today?", "Have you recently had thoughts about harming or killing others?" and "Do you have any dangerous items in your possession?". FALL RISK ASSESSMENT: Fall risk assessment completed. No fall risk identified. NUTRITIONAL RISK ASSESSMENT: The nutritional risk assessment revealed no deficiencies. FUNCTIONAL ASSESSMENT: Functional assessment: no impairments noted. LEARNING NEEDS ASSESSMENT: The learning needs assessment revealed no barriers. SKIN INTEGRITY ASSESSMENT: Skin integrity risk assessment completed. No skin integrity risk identified. --23:39 Lucina Ratliff R.N. PROBLEMS: Diabetes Mellitus [Active]. --23:37 Lucina Ratliff R.N. GI Bleeding. Liver disease. --23:37 Lucina Ratliff R.N. ADDITIONAL SURGERIES: Cholecystectomy. --23:37 Lucina Ratliff R.N. Interventions ID band on patient. --23:39 Lucina Ratliff R.N. PHYSICAL ASSESSMENT To room via wheelchair. GENERAL / NEURO / PSYCH: Appears in distress. Decreased awareness (opens eyes to voice and lethargic). The patient is disoriented to place, time and situation. Speech within normal limits. She has had new onset of generalized weakness. Patient appears well-nourished and neat and clean. HEENT: Pupils equal, round and reactive to light. RESPIRATORY: Respirations not labored. Breath sounds within normal limits. CVS: Normal sinus rhythm noted. Capillary refill less than 2 seconds. GI / : Abdomen soft and nontender. Bowel sounds within normal limits. SKIN: Skin is warm and dry. Normal skin turgor. --23:40 Lucina Ratliff R.N. NURSING PROGRESS NOTES Patient gowned. Two patient identifiers checked. Call light placed in reach. Side rails up x 2. Bed placed in lowest position. Brakes of bed on. Patient ready for evaluation- chart flagged. --23:40 Lucina Ratliff R.N. 23:35 04/17/2017 Site #1 started via IV in the right antecubital space with an 20g angiocath, with aseptic technique and good blood return; one attempt. Blood drawn: rainbow set. Labeled in the presence of the patient and sent to the lab. Saline lock flushed with 10 mL saline. --23:45 Lucina Ratliff R.N. 23:45 04/17/2017 Started bag #1 1000 mL IV Fluids IV NS (Saline); bolus of 1000 mL wide open then over 1 hour(s) via site #1. Allergies verified and confirmed 5 rights. IV patency established. IV site checked: no pain, redness, or swelling. IV flushed thoroughly pre- and post-medication administration. --23:45 Lucina Ratliff R.N. EKG time: (2348). EKG was ordered, performed by a ronnie and shown to the ED physician. --23:48 Chuck Fine, ARIANE Tech1 8 fr in/out catheterization. During procedure hand hygiene observed and sterile equipment and aseptic technique used. Return of less than 50 mL yellow-colored clear urine. She tolerated procedure well. Two patient identifiers checked. Call light placed in reach. Side rails up x 2. Bed placed in lowest position. Brakes of bed on. --23:52 Lucina Ratliff R.N. 23:55 04/17/17. BP: 91/54. HR: 80 (regular and normal rate). RR: 16. O2 saturation: 100% on room air. Temp: deferred. Pain level now: 0/10. --23:55 Lucina Ratliff R.N. The patient is calm and resting quietly. --23:55 Lucina Ratliff R.N. Patient gowned. Reassessment after fluids administered. Overall patient status is the same- she states feels the same. GENERAL / NEURO / PSYCH: Decreased awareness disoriented to time, place and situation; opens eyes to voice; lethargic. CVS: Cardiac rhythm: normal sinus rhythm. Two patient identifiers checked. Call light placed in reach. Side rails up x 2. Bed placed in lowest position. Brakes of bed on. --00:23 Lucina Ratliff R.N. 00:19 04/18/17. BP: 85/47 taken on the left arm, while lying. HR: 99 (regular and normal rate). RR: 18 (regular and unlabored). O2 saturation: 100% on room air. Temp: deferred. Pain level now: 0/10. --00:23 Lucina Ratliff R.N. 00:45 04/18/2017 IV Fluids IV NS Discontinued: bag #1 completed. Total amount infused: 1000 mL. IV patency established. IV site checked: no pain, redness, or swelling. IV flushed thoroughly. --00:52 Lucina Ratliff R.N. 01:06 04/18/2017 Zofran (Ondansetron HCl) IVP 4 mg given over 2 minute(s) via site #1. Allergies verified and confirmed 5 rights. IV patency established. IV site checked: no pain, redness, or swelling. IV flushed thoroughly pre- and post-medication administration. IVP given by RN. --01:09 Lucina Ratliff R.N. 00:45 04/18/17. BP: 101/45. HR: 80 (regular). RR: 16. O2 saturation: 100% on nasal cannula at 2 liters/minute. Temp: deferred. Pain level now: 0/10. --01:11 Lucina Ratliff R.N. Patient gowned. Two patient identifiers checked. Call light placed in reach. Side rails up x 2. Bed placed in lowest position. Brakes of bed on. --01:11 Lucina Ratliff R.N. Reassessment after fluids administered. Overall patient status is the same- she states feels the same. ( pt condition still same, pt moved to room 2 per MD request to place central line, pt BP improving.). --01:14 Lucina Ratliff R.N. 01:06 04/18/17. BP: 116/99 taken on the right arm, while lying. HR: 82 (regular and normal rate). RR: 18. O2 saturation: 100%. Temp: deferred. Pain level now: 12/25. --01:14 Lucina Ratliff R.N. 02:00 04/18/2017 Site #2 started via central line, with aseptic technique and good blood return (placed by ). --02:38 Lucina Ratliff R.N. 02:38 04/18/2017 Started 0.5 mcg of Levophed (Norepinephrine Bitartrate) Drip IV in bag #1 250 mL; over 135 hour(s) via site #2 via IV pump. Allergies verified and confirmed 5 rights. IV patency established. IV site checked: no pain, redness, or swelling. IV flushed thoroughly pre- and post-medication administration. --02:39 Lucina Ratliff R.N. 02:00 04/18/17. BP: 84/70. HR: 70. RR: 18. O2 saturation: 99% on room air. Temp: deferred. Pain level now: 0. --02:54 Lucina Ratliff R.N. Reassessment after fluids administered and medication administered. She is calm, resting quietly and sleeping. --02:54 Lucina Ratliff R.N. 02:58 04/18/2017 Levophed Drip IV via IV site #2 Rate Changed: increased to 1.5 mcg/min via IV pump. IV patency established. IV site checked: no pain, redness, or swelling. IV flushed thoroughly. Confirmed 5 Rights. --02:58 Lucina Ratliff R.N. 03:10 04/18/2017 Started bag #1 1000 mL IV Fluids IV NS (Saline); at 200 mL/hr over 5 hour(s) via site #2 via IV pump. Allergies verified and confirmed 5 rights. IV patency established. IV site checked: no pain, redness, or swelling. IV flushed thoroughly pre- and post-medication administration. --03:10 Lucina Ratliff R.N. Reassurance given to the patient and patient's family. 14 fr clarke catheter placed. Reason for indwelling catheter: critical need to monitor intake and output and patient's decreased level of consciousness. During procedure hand hygiene observed and sterile equipment and aseptic technique used. Return of 250 mL yellow-colored clear urine; attached to bedside drainage bag positioned below the bladder and secured with stabilization device. She tolerated procedure well. --03:12 Lucina Ratliff R.N. 03:18 04/18/2017 Levophed Drip IV via IV site #2 Rate Changed: increased to 2.5 mcg/min via IV pump. IV patency established. IV site checked: no pain, redness, or swelling. IV flushed thoroughly. Confirmed 5 Rights. --03:18 Lucina Ratliff R.N. 03:17 04/18/17. BP: 80/47 taken on the left arm, while lying. HR: 67 (regular and normal rate). RR: 16 (regular, unlabored and shallow). O2 saturation: 100% on room air. Temp: deferred. Pain level now: 0/10. --03:28 Lucina Ratliff R.N. The patient is resting quietly. Overall patient status is the same- she states feels the same. RESPIRATORY: No respiratory distress. --03:28 Lucina Ratliff R.N. Reassurance given to the patient's family. Side rails up x 2. --03:28 Lucina Ratliff R.N. 03:30 04/18/17. BP: 89/51 taken on the left arm, while lying. HR: 64 (regular and normal rate). RR: 18. O2 saturation: 100%. Temp: 97.3 F (axillary). Pain level now: 0/10. --03:33 Lucina Ratliff R.N. 03:33 04/18/2017 Levophed Drip IV via IV site #2 Rate Changed: increased to 3.5 mcg/min via IV pump. IV patency established. IV site checked: no pain, redness, or swelling. IV flushed thoroughly. Confirmed 5 Rights. --03:33 Lucina Ratliff R.N. 03:44 04/18/2017 Levophed Drip IV via IV site #2 Rate Changed: increased to 5.0 mcg/min via IV pump. IV patency established. IV site checked: no pain, redness, or swelling. IV flushed thoroughly. Confirmed 5 Rights. --03:45 Lucina Ratliff R.N. 03:45 04/18/17. BP: 84/53 taken on the left arm, while lying. HR: 61. RR: 14. O2 saturation: 100% on room air. Temp: deferred. Pain level now: 0/10. --03:46 Lucina Ratliff R.N. Overall patient status is the same- she states feels the same. ( no distress noted at this time, will continue to monitor, family at bedside.). RESPIRATORY: No respiratory distress. --03:46 Lucina Ratliff R.N. 03:49 04/18/17. BP: 93/57 taken on the left arm, while lying. HR: 60 (regular and normal rate). RR: 14 (regular, unlabored and shallow). O2 saturation: 100% on room air. Temp: deferred. Pain level now: 0/10. --03:52 Lucina Ratliff R.N. Reassessment after fluids administered and medication administered. She is resting quietly. RESPIRATORY: No respiratory distress. --03:53 Lucina Ratliff R.N. Two patient identifiers checked. Call light placed in reach. Side rails up x 2. Bed placed in lowest position. Brakes of bed on. --03:53 Lucina Ratliff R.N. 03:57 04/18/17. BP: 87/54 taken on the left arm, while lying. HR: 61 (regular and normal rate). RR: 12 (regular, unlabored and shallow). O2 saturation: 99% on room air. Temp: deferred. Pain level now: 0/10. --03:58 Lucina Ratliff R.N. 03:59 04/18/2017 Levophed Drip IV via IV site #2 Rate Changed: increased to 6 mcg/min via IV pump. IV patency established. IV site checked: no pain, redness, or swelling. IV flushed thoroughly. Confirmed 5 Rights. --03:59 Gaudencio, Lucina, R.N. Reassurance given to the patient's family. The patient is calm and resting quietly. --04:25 Lucina Ratliff R.N. 04:20 04/18/17. BP: 98/75. HR: 70 (regular and normal rate). RR: 14 (regular, unlabored and shallow). O2 saturation: 100% on room air. Pain level now: 0/10. --04:25 Lucina Ratliff R.N. 04:40 04/18/17. BP: 93/57 taken on the left arm. HR: 63 (regular and normal rate). RR: 14 (regular, unlabored and shallow). O2 saturation: 100% on room air. Temp: deferred. Hagan-Sams pain scale: 0/10. --04:44 Lucina Ratliff R.N. Reassessment after fluids administered and medication administered. She is resting quietly. Overall patient status is improved- she states feels better. RESPIRATORY: No respiratory distress. CVS: Normal sinus rhythm noted. SKIN: Skin is warm and dry. --04:45 Lucina Ratliff R.N. 04:50 04/18/2017 Levophed Drip IV via IV site #2 Rate Changed: increased to 7 mcg/min via IV pump. IV patency established. IV site checked: no pain, redness, or swelling. IV flushed thoroughly. Confirmed 5 Rights. --04:59 Lucina Ratliff R.N. 04:54 04/18/2017 Levophed Drip IV via IV site #2 Rate Changed: increased to 8 mcg/min via IV pump. IV patency established. IV site checked: no pain, redness, or swelling. IV flushed thoroughly. Confirmed 5 Rights. --04:59 Lucina Ratliff R.N. 04:50 04/18/17. BP: 104/57. HR: 65 (regular and normal rate). RR: 14 (regular, unlabored and shallow). O2 saturation: 99% on room air. Temp: 97.4 F (axillary). Pain level now: 0/10. --05:01 Lucina Ratliff R.N. Overall patient status is improved. Patient transported to [place] by stretcher with monitor, nurse and tech. (04:55). --05:01 Lucina Ratliff R.N. 04:54 04/18/17. BP: 97/57 taken on the left arm, while lying. HR: 62 (regular). RR: 14 (regular, unlabored and shallow). O2 saturation: 100% on room air. Temp: deferred. Pain level now: 0/10. --05:03 Lucina Ratliff R.N. ( transported by house sup and tech to PA. Dr. Seo in visiting with family). RESPIRATORY: No respiratory distress. SKIN: Skin is warm and dry. --05:03 Lucina Ratliff R.N. 05:12 04/18/2017 Levophed Drip IV via IV site #2 Rate Changed: decreased to 6 mcg/min via IV pump. IV patency established. IV site checked: no pain, redness, or swelling. IV flushed thoroughly. Confirmed 5 Rights. --05:12 Lucina Ratliff R.N. 05:12 04/18/17. BP: 131/108 taken on the left arm, while lying. HR: 73 (regular and normal rate). RR: 14 (regular and unlabored). O2 saturation: 100% on room air. Temp: deferred. Hagan-Sams pain scale: 0/10. --05:14 Lucina Ratliff R.N. Reassessment after medication administered. She is resting quietly. ( D). RESPIRATORY: No respiratory distress. CVS: Normal sinus rhythm noted. SKIN: Skin is warm and dry. Patient returned from [place] by stretcher with monitor, nurse and tech. (05:10). --05:14 Lucina Ratliff R.N. Two patient identifiers checked. Call light placed in reach. Side rails up x 2. Bed placed in lowest position. Brakes of bed on. --05:14 Lucina Ratliff R.N. ( Dr. Seo at bedside to [facility]). --05:14 Lucina Ratliff R.N. 05:20 04/18/17. BP: 101/54 taken on the left arm, while lying. HR: 69 (regular and normal rate). RR: 14 (regular and unlabored). O2 saturation: 100% on room air. Temp: 97.6 F (axillary). Pain level now: 0/10. --05:24 Lucina Ratliff R.N. 05:36 04/18/17. BP: 97/67 taken on the left arm, while lying. HR: 68 (regular and normal rate). RR: 14 (regular and unlabored). O2 saturation: 100%. Temp: deferred. Pain level now: 0/10. --05:37 Lucina Ratliff R.N. 05:40 04/18/2017 Levophed Drip IV via IV site #2 Rate Changed: increased to 7 mcg/min via IV pump. IV patency established. IV site checked: no pain, redness, or swelling. IV flushed thoroughly. Confirmed 5 Rights. --05:44 Lucina Ratliff R.N. 05:44 04/18/2017 Levophed Drip IV Continued: upon admission at the rate of 7 mcg/min. 200 mL remaining. IV patency established. IV site checked: no pain, redness, or swelling. IV flushed thoroughly. --05:45 Lucina Ratliff R.N. 05:47 04/18/2017 IV Fluids IV NS Continued: at the rate of 200 mL/hr. 500 mL remaining bag #2. IV patency established. IV site checked: no pain, redness, or swelling. IV flushed thoroughly. --05:47 Lucina Ratliff R.N. 05:49 04/18/2017 Started 1 gm of Ceftriaxone IVPB in bag #1 50 mL; over 20 minute(s) via site #1 via IV pump. Allergies verified and confirmed 5 rights. IV patency established. IV site checked: no pain, redness, or swelling. IV flushed thoroughly pre- and post-medication administration. --05:49 Lucina Ratliff R.N. 05:50 04/18/2017 Site #[address] upon admission; patent, no pain and no signs of infection or infiltration. Good blood return present. Converted to saline lock and flushed with 10 mL saline; flushes easily. --05:50 Lucina Ratliff R.N. 05:51 04/18/2017 Site #[address] upon admission; patent, no pain and no signs of infection or infiltration. Good blood return present; flushes easily. --05:51 Lucina Ratliff R.N. 05:52 04/18/2017 Ceftriaxone IVPB Continued: upon admission at the rate of 150 mL/hr. 50 mL remaining bag #1. IV patency established. IV site checked: no pain, redness, or swelling. IV flushed thoroughly. --05:52 Lucina Ratliff R.N. DISPOSITION / DISCHARGE Transported via stretcher by nurse with monitor and IV. Report was given to a nurse via a phone call. Report included patient's care, treatment, medications, reviewed medication reconcilliation, and condition (including any recent changes or anticipated changes). All questions were answered. Report was acknowledged and care was transferred. (Mini YANES). --05:41 Lucina Ratliff R.N. 05:37 04/18/17. BP: 98/68 taken on the left arm, while lying. HR: 57 (regular and bradycardic). RR: 18 (regular and unlabored). O2 saturation: 99% on room air. Temp: deferred. Pain level now: 0/10. --05:41 Lucina Ratliff R.N. Locked/Released at 04/18/2017 5:53 by Lucina Ratliff R.N.
--- NOTE | 2017-04-18 07:42 | ED ORDER SUMMARY ---
..... Patient: ZULY MATTHEW OrderSheet [facility] VisitID: [id number] [place] [address] 46y, F Registration Date/Time: 04/17/2017 ORDER SHEET Weight: 90.7 kg (stated) Allergies: Aspirin, Augmentin GENERAL ORDERS: CBC w Diff Urgent (23:40 04/17/2017 Bharati Walsh) (23:41 CBradburn R.N.) CMP Urgent (23:40 04/17/2017 Bharati Walsh) (23:41 CBabdulazizburn R.N.) UA-Culture if indicated Urgent (23:40 04/17/2017 Bharati Walsh) (Ack 23:42 RKjaimee) (23:51 CBradburn R.N.) Urine Drug Screen Urgent (23:40 04/17/2017 Bharati Walsh) (Ack 23:42 RKyoandyuga) (23:51 CBradburn R.N.) PT with INR Urgent (23:40 04/17/2017 Bharati Walsh) (23:41 CBradburn R.N.) PTT Urgent (23:40 04/17/2017 Bharati Walsh) (23:41 CBradburn R.N.) Ammonia Level Urgent (23:40 04/17/2017 Bharati Walsh) (23:41 CBradburn R.N.) Amylase Urgent (23:40 04/17/2017 Bharati Walsh) (23:41 CBradburn R.N.) Lipase Urgent (23:40 04/17/2017 Bharati Walsh) (23:41 CBradburn R.N.) Hepatitis Evaluation VII Urgent (00:22 04/18/2017 Bharati Walsh) (Ack 0:33 RKaruga) Chest 1V (line placement) Urgent (02:08 04/18/2017 Bharati Walsh) (2:12 RKaruga) Type & Screen Urgent (02:19 04/18/2017 Bharati Walsh) (Ack 2:22 RKaruga) (2:40 CBradburn R.N.) Chest 1V (line placement) Urgent (04:26 04/18/2017Darline Calabrese Dr.) (4:39 Jair R.N.) CT Abd/Pel wo Cont Urgent (04:26 04/18/2017 Bharati Walsh) (Ack 4:46 RKaruga) (5:03 Jair R.N.) MEDICATION ORDERS: Levophed Drip IV : 0.5-12 mcg/min (HIGH ALERT MEDICATION, NOW) (02:03 04/18/2017 Bharati Walhs) (Ack 2:34 Jair R.N.) (2:39 Jair R.N.) IV FLUIDS: IV NS : initial bolus none -, then 1000 mL/hr for X1 (NOW) (23:39 04/17/2017 Bharati Walsh) (23:45 Jair Hong) Zofran IV 4 mg (NOW) (01:07 04/18/2017 Jair Hong verbal order read back to Bharati Walsh) (1:09 Jair Hong) IV NS with Normal Saline 1 Liter: initial bolus none -, then 200 mL/hr for X1 (NOW) (03:09 04/18/2017 Jair Hong verbal order read back to Bharati Walsh) (3:10 Jair Hong) Ceftriaxone IV 1 gm/50mL (NOW) (05:39 04/18/2017 Bharati Walsh) (5:49 Jair AlmodovarNTangela) ORDER SHEET NOTES: [Electronically signed by Lucina Ratliff R.N. (05:53 04/18/2017)] [Electronically signed by Kyree Bourgeois Dr. (07:41 04/18/2017)] [Electronically locked/signed by Lucina Ratliff R.N. (05:53 04/18/2017)]
--- NOTE | 2017-04-18 07:42 | ED ORDER SUMMARY ---
..... Patient: ZULY MATTHEW OrderSheet [facility] VisitID: [id number] [place] [address] 46y, F Registration Date/Time: 04/17/2017 ORDER SHEET Weight: 90.7 kg (stated) Allergies: Aspirin, Augmentin GENERAL ORDERS: CBC w Diff Urgent (23:40 04/17/2017 Bharati Walsh) (23:41 CBradburn R.N.) CMP Urgent (23:40 04/17/2017 Bharati Walsh) (23:41 CBabdulazizburn R.N.) UA-Culture if indicated Urgent (23:40 04/17/2017 Bharati Walsh) (Ack 23:42 RKjaimee) (23:51 CBradburn R.N.) Urine Drug Screen Urgent (23:40 04/17/2017 Bharati Walsh) (Ack 23:42 RKyoandyuga) (23:51 CBradburn R.N.) PT with INR Urgent (23:40 04/17/2017 Bharati Walsh) (23:41 CBradburn R.N.) PTT Urgent (23:40 04/17/2017 Bharati Walsh) (23:41 CBradburn R.N.) Ammonia Level Urgent (23:40 04/17/2017 Bharati Walsh) (23:41 CBradburn R.N.) Amylase Urgent (23:40 04/17/2017 Bharati Walsh) (23:41 CBradburn R.N.) Lipase Urgent (23:40 04/17/2017 Bharati Walsh) (23:41 CBradburn R.N.) Hepatitis Evaluation VII Urgent (00:22 04/18/2017 Bharati Walsh) (Ack 0:33 RKaruga) Chest 1V (line placement) Urgent (02:08 04/18/2017 Bharati Walsh) (2:12 RKaruga) Type & Screen Urgent (02:19 04/18/2017 Bharati Walsh) (Ack 2:22 RKaruga) (2:40 CBradburn R.N.) Chest 1V (line placement) Urgent (04:26 04/18/2017Darline Calabrese Dr.) (4:39 Jair R.N.) CT Abd/Pel wo Cont Urgent (04:26 04/18/2017 Bharati Walsh) (Ack 4:46 RKaruga) (5:03 Jair R.N.) MEDICATION ORDERS: Levophed Drip IV : 0.5-12 mcg/min (HIGH ALERT MEDICATION, NOW) (02:03 04/18/2017 Bharati Walsh) (Ack 2:34 Jair R.N.) (2:39 Jair R.N.) IV FLUIDS: IV NS : initial bolus none -, then 1000 mL/hr for X1 (NOW) (23:39 04/17/2017 Bharati Walsh) (23:45 Jair Hong) Zofran IV 4 mg (NOW) (01:07 04/18/2017 Jair Hong verbal order read back to Bharati Walsh) (1:09 Jair Hong) IV NS with Normal Saline 1 Liter: initial bolus none -, then 200 mL/hr for X1 (NOW) (03:09 04/18/2017 Jair Hong verbal order read back to Bharati Walsh) (3:10 Jair Hong) Ceftriaxone IV 1 gm/50mL (NOW) (05:39 04/18/2017 Bharati Walsh) (5:49 Jair AlmodovarNTangela) ORDER SHEET NOTES: [Electronically signed by Lucina Ratliff R.N. (05:53 04/18/2017)] [Electronically signed by Kyree Bourgeois Dr. (07:41 04/18/2017)] [Electronically locked/signed by Lucina Ratliff R.N. (05:53 04/18/2017)]
--- NOTE | 2017-04-18 07:42 | ED MED RECONCILIATION SUMMARY ---
Patient: ZULY MATTHEW Medication Reconciliation Report [facility] VisitID: [id number] [address] [place] [address] 46y, F Registration Date/Time: 04/17/2017 Weight: 90.7 kg Height/Length: 61 in. BMI: 37.8 ALLERGIES: Aspirin, Augmentin The patient's Home Medications are listed below: THE FOLLOWING MEDICATIONS NEED TO BE RECONCILED: Ferrous Gluconate Oral (325 (36 Fe) mg) 1 tablet Furosemide Oral (40 mg) 1 tablet, daily Nadolol Oral (20 mg) 2 tablets, daily Omeprazole Oral 20 mg, 2x a day Spironolactone Oral (100 mg) 1 tablet, daily Sucralfate Oral (1 gm) 1 tablet, 4x a day The source(s) of the original Home Medication information: Not obtained. The following Medications were given to the patient in the Emergency Department: IV NS IV Fluids bolus 1000 mL wide open, administered: 04/17/2017 11:45:00 PM Zofran [IVP] IVP 4 mg, administered: 04/18/2017 1:06:00 AM Levophed [IV DRIP] Drip IV bolus 0, then 0.5 mcg, administered: 04/18/2017 2:38:00 AM IV NS IV Fluids bolus 0, then 200 mL/hr, administered: 04/18/2017 3:10:00 AM Ceftriaxone [IVPB] IVPB bolus 0, then 1 gm, administered: 04/18/2017 5:49:00 AM The following Medications were prescribed to the patient: None.
[2017-04-19] VITALS (23 sets, daily range): BP systolic 87–123; BP diastolic 48–78
--- NOTE | 2017-04-19 16:15 | Progress Note ---
Subjective General Patient seen and examined. Patient had no acute events overnight. Patient still on the Levaquin drip. Patient is still slightly sedated Constitutional Other (2 sedated to talk). Physical Exam Vital Signs / I&Os Vital Signs Date Time Temp Pulse Resp B/P Pulse O2 O2 Flow FiO2 Ox Delivery Rate 04/23 1530 98.2 88 13 95/54 100 Room Air / 0918 98.6 83 12 96/50 100 Room Air / 0800 98.6 88 15 104/54 100 Room Air / 0715 98.6 99 14 91/46 100 Room Air / 0645 98.8 94 12 97/49 100 Room Air / 0637 98.6 106 12 102/39 100 Room Air / 0219 98.2 91 10 105/48 95 Room Air 04/23 0053 Room Air / 2241 98.2 110 25 105/69 100 Room Air /08 2030 Room Air 04/22 1838 98.2 113 12 116/50 97 I&O 04/22 0800 06/08 1600 04/23 0000 Intake Total 120 560 786 Output Total 1000 2100 2450 Balance -880 1540 -1664 General Appearance No acute distress HEENT Atraumatic, EOMI, Moist mucous membranes Lungs Clear to auscultation Neck No JVD, No masses Cardiovascular Normal S1 and S2, No murmurs, gallops, rubs Abdomen Soft, No tenderness, No guarding Extremities No edema, Normal pulses Skin No Breakdown Neurological Cranial nerves intact, No lateralizing signs Psych/Mental Status Confused Assessment and Plan Problem List 1. Hyperammonemia Plan Elevated ammonia that was not treated as leading to altered mental status Currently patient is having a normal ammonia level We will continue with lactulose to Yoanna to 4 bowel movements a day 2. Hypotension Plan Patient has persistent hypotension We'll continue the levothyroxine drip and titrate down as much as possible We'll continue with fluid administration Will give fluids. Initial sling given the fact the patient has cirrhosis 3. Altered mental status Plan Improved from admission However patient still has altered mental status Patient is very sedated We'll continue with treatment and management minimize pain medication anything else that can cause confusion
[2017-04-20] VITALS (22 sets, daily range): BP systolic 91–114; BP diastolic 47–69
--- NOTE | 2017-04-20 15:18 | Progress Note ---
Subjective General Patient seen and examined this morning. Patient has no acute events overnight. Patient's mentation is returned to normal. Will titrate down levo fed drip today Constitutional Malaise. Denies: Fever, Chills, Sweats, Weakness, Other. Eyes Denies: Pain, Vision Change, Conjunctival Inflammation, Eyelid Inflammation, Redness, Other. ENT Denies: Ear Pain, Ear Discharge, Nose Pain, Nasal Discharge, Nasal Congestion, Mouth Pain, Mouth Swelling, Throat Pain, Throat Swelling, Other. Respiratory Denies: Cough, Dry, SOB w/exertion, Wheezing, Hemoptysis, Pleuritic Pain, Sputum , Other. Cardiovascular Denies: Chest Pain, Palpitations, Orthopnea, PND, Edema, Light-headedness, Other. Gastrointestinal Denies: Nausea, Vomiting, Abdominal Pain, Diarrhea, Constipation, Melena, Hematochezia, Other. Genitourinary Denies: Dysuria, Frequency, Incontinence, Hematuria, Retention, Other. Musculoskeletal Denies: Neck Pain, Shoulder Pain, Arm Pain, Back Pain, Hand Pain, Leg Pain, Foot Pain, Other. Physical Exam Vital Signs / I&Os Vital Signs Date Time Temp Pulse Resp B/P Pulse O2 O2 Flow FiO2 Ox Delivery Rate 04/20 1507 67 12 102/55 100 06/06 1410 69 10 106/57 100 Room Air 06/06 1200 66 9 101/66 100 Room Air 06/06 1101 69 16 100 Room Air 06/06 1045 98.4 68 12 103/56 100 Room Air 0.0 06/06 0900 73 11 107/64 100 Room Air 06/06 0800 58 9 104/60 100 Room Air 06/06 0745 Room Air 06/06 0708 98.4 60 10 95/57 100 Room Air 06/06 0610 98.2 64 10 110/62 100 Room Air 0.0 06/06 0516 60 12 114/67 100 Room Air 0.0 06/06 0415 59 10 111/62 100 Room Air 0.0 06/06 0316 64 10 106/63 100 Room Air 0.0 06/06 0213 98.4 73 16 91/53 100 Room Air 0.0 06/06 0100 60 11 102/63 100 Room Air 0.0 06/06 0007 66 12 101/62 100 Room Air 0.0 06/05 2317 57 10 105/54 100 Room Air 0.0 04/194 98.2 04/19 2205 57 12 95/52 100 05 2112 64 16 107/60 100 05 2047 Room Air 04/19 2007 58 20 91/57 100 /05 1915 58 12 110/62 100 /05 1812 98.1 58 12 109/65 100 06/05 1710 53 12 92/60 100 05 1621 56 12 103/62 100 I&O 04/19 0800 04/19 1600 04/20 0000 Intake Total 4321 2658 1610 Output Total 1690 1470 1587 Balance 2631 1188 23 General Appearance Alert, Oriented X3, No acute distress HEENT Atraumatic, EOMI Lungs Clear to auscultation Cardiovascular Regular rate and rhythm, No murmurs, gallops, rubs Abdomen Soft, No tenderness Extremities No edema, Normal pulses, No tenderness Skin No Breakdown Neurological Normal speech, Normal tone, Cranial nerves intact, No lateralizing signs Psych/Mental Status Mood normal LAB Results Laboratory Tests 04/20 0444 Chemistry Plasma Sodium (136 - 145 mmol/L) 138 Plasma Potassium (3.5 - 5.1 mmol/L) 3.6 Plasma Chloride (98 - 107 mmol/L) 110 CO2 (Enzymatic) (21 - 32 mmol/L) 16 BUN (7 - 18 mg/dL) 12 Creatinine (0.6 - 1.3 mg/dL) 1.3 Est GFR ( Amer) (mL/min) 56.32 Est GFR (Non-Af Amer) (mL/min) 46.47 Glucose (70 - 110 mg/dL) 163 Plasma Calcium (8.5 - 10.1 mg/dL) 7.4 Total Bilirubin (0.0 - 1.0 mg/dL) 1.0 AST (15 - 37 U/L) 24 ALT (12 - 78 U/L) 23 Alkaline Phosphatase (46 - 116 U/L) 108 Total Protein (6.4 - 8.2 g/dL) 6.5 Albumin (3.3 - 5.0 g/dL) 1.8 Hematology WBC (4.5 - 11.5 K/uL) 3.5 RBC (4.00 - 5.20 M/uL) 2.78 Hgb (12.0 - 16.0 gm/dL) 8.4 Hct (36.0 - 46.0 %) 25.3 MCV (80 - 100 fL) 91 MCH (26 - 34 pg) 30 RDW (11.6 - 14.8 %) 14.6 Neut % (Auto) (50 - 75 %) 82.9 Lymph % (Auto) (25 - 40 %) 12.7 [place] % (Auto) (3 - 14 %) 4.3 Eos % (Auto) (0 - 4 %) 0 Baso % (Auto) (0 - 2 %) 0.1 Plt Count, EDTA (150 - 400 K/uL) 58 PUBS MCHC (31 - 37 g/dL) 33 Assessment and Plan Problem List 1. Hyperammonemia Plan Ammonia has been stable since admission We'll continue lactulose to titrate to 4 bowel movements a day We'll repeat ammonia level in the a.m. If ammonia stable we'll consider discharge 2. Liver cirrhosis Plan Establish diagnosis Patient's medication is up-to-date for someone with her condition We'll advised patient follow up with her doctor neurologist as an outpatient 3. Hypotension Plan Patient had hypotension symptoms since admission We'll titrate down the Levophed drip today We'll examine the patient with lowest blood pressure If mental status is normal and patient's functionality is normal will consider discharging 4. Altered mental status Plan Resolved
[2017-04-21] VITALS (12 sets, daily range): BP systolic 96–115; BP diastolic 40–66
--- NOTE | 2017-04-21 15:42 | Progress Note ---
Subjective General Patient seen and examined. No acute events overnight. Patient is off of levothyroxine drip and maintaining her own blood pressure. We'll initiate home medications starting tomorrow. Patient has had no episodes of vomiting with meals today Constitutional Denies: Fever, Chills, Sweats, Weakness, Malaise, Other. Eyes Denies: Pain, Vision Change, Conjunctival Inflammation, Eyelid Inflammation, Redness, Other. ENT Denies: Ear Pain, Ear Discharge, Nose Pain, Nasal Discharge, Nasal Congestion, Mouth Pain, Mouth Swelling, Throat Pain, Throat Swelling, Other. Respiratory Denies: Cough, Dry, SOB w/exertion, Wheezing, Hemoptysis, Pleuritic Pain, Sputum , Other. Cardiovascular Denies: Chest Pain, Palpitations, Orthopnea, PND, Edema, Light-headedness, Other. Gastrointestinal Nausea, Abdominal Pain. Genitourinary Denies: Dysuria, Frequency, Incontinence, Hematuria, Retention, Other. Musculoskeletal Denies: Neck Pain, Shoulder Pain, Arm Pain, Back Pain, Hand Pain, Leg Pain, Foot Pain, Other. Skin Denies: Rash, Lesions, Jaundice, Bruising, Other. Physical Exam Vital Signs / I&Os Vital Signs Date Time Temp Pulse Resp B/P Pulse O2 O2 Flow FiO2 Ox Delivery Rate 04/21 1438 98.2 69 16 111/57 100 06/07 1025 98.1 67 16 115/59 100 Room Air 06/07 0706 97.9 76 10 98/61 100 Room Air 06/07 0611 97.9 68 9 96/56 100 Room Air 0.0 06/07 0520 72 9 103/54 99 Room Air 0.0 06/07 0411 74 11 103/50 100 Room Air 0.0 06/07 0312 67 10 105/51 100 Room Air 0.0 06/07 0224 97.9 06/07 0217 67 9 106/66 100 Room Air 0.0 06/07 0118 66 10 102/51 100 Room Air 0.0 06/07 0014 70 10 98/52 100 Room Air 0.0 06/06 2316 72 10 106/57 100 Room Air 0.0 06/06 2233 97.9 06/06 2204 67 12 92/55 100 06/06 2110 70 12 108/69 100 06/06 2020 Room Air 04/20 2000 78 13 105/63 100 06/06 1912 71 12 102/54 100 04/20 1811 85 12 99/52 100 04/20 1808 97.9 04/20 1711 82 12 99/47 100 04/20 1612 69 12 106/60 100 I&O 04/20 0800 04/20 1600 04/21 0000 Intake Total 2151 324 4152 Output Total 9736 870 2507 Balance 1071 -572 3049 General Appearance Alert, Oriented X3, No acute distress HEENT Atraumatic, PERRLA, Moist mucous membranes Lungs Clear to auscultation Neck No JVD, No masses Cardiovascular Regular rate and rhythm, Normal S1 and S2, No murmurs, gallops, rubs Abdomen Soft, - distended - fluid wave noted - will consider tappint tomorrow Extremities No edema, No tenderness Skin No Breakdown Neurological Normal tone, Cranial nerves intact, No lateralizing signs Psych/Mental Status Mood normal LAB Results Laboratory Tests 04/21 04/21 0745 0745 Chemistry Plasma Sodium (136 - 145 mmol/L) 144 Plasma Potassium (3.5 - 5.1 mmol/L) 3.7 Plasma Chloride (98 - 107 mmol/L) 114 CO2 (Enzymatic) (21 - 32 mmol/L) 15 BUN (7 - 18 mg/dL) 10 Creatinine (0.6 - 1.3 mg/dL) 1.2 Est GFR ( Amer) (mL/min) >60 Est GFR (Non-Af Amer) (mL/min) 50.96 Glucose (70 - 110 mg/dL) 87 Plasma Calcium (8.5 - 10.1 mg/dL) 7.7 Total Bilirubin (0.0 - 1.0 mg/dL) 0.8 AST (15 - 37 U/L) 34 ALT (12 - 78 U/L) 23 Alkaline Phosphatase (46 - 116 U/L) 104 Ammonia (11 - 32 umol/L) 28 Total Protein (6.4 - 8.2 g/dL) 6.3 Albumin (3.3 - 5.0 g/dL) 1.9 Assessment and Plan Problem List 1. Hypotension Plan Patient initially presented with hypotension Patient with a levo fed drip until yesterday Patient will be off of levo fed drip for the time being Patient has been maintaining her pressure since yesterday We'll resume home antihypertensive medications and see if patient is able to maintain her blood pressure 2. Hyperammonemia Plan Patient initially presented with elevated ammonia levels Patient has normal ammonia levels right now secondary to lactulose be administered Will continue lactulose to titrate to 4 bowel movements a day 3. Liver cirrhosis Plan Patient has an established history of nonalcoholic cirrhosis Patient has evidence of positive fluid wave on exam today Will have the patient go for CT scan tomorrow and if patient has a fair amount of ascites ectopy tab will ask that the patient be tapped via IR Anticipated discharge tomorrow
[2017-04-22 02:21] VITALS: BP 105/60
[2017-04-22 06:49] VITALS: BP 93/53
[2017-04-22 11:15] VITALS: BP 118/63
[2017-04-22 14:46] VITALS: BP 124/38
--- NOTE | 2017-04-22 16:19 | Progress Note ---
Subjective General Patient seen and examined. Patient has no acute complaints overnight. Patient tolerated diet without vomiting. Patient will go for paracentesis today Constitutional Denies: Fever, Chills, Sweats, Weakness, Malaise, Other. ENT Denies: Ear Pain, Ear Discharge, Nose Pain, Nasal Discharge, Nasal Congestion, Mouth Pain, Mouth Swelling, Throat Pain, Throat Swelling, Other. Respiratory Denies: Cough, Dry, SOB w/exertion, Wheezing, Hemoptysis, Pleuritic Pain, Sputum , Other. Cardiovascular Denies: Chest Pain, Palpitations, Orthopnea, PND, Edema, Light-headedness, Other. Gastrointestinal Other (distention ). Genitourinary Denies: Dysuria, Frequency, Incontinence, Hematuria, Retention, Other. Musculoskeletal Denies: Neck Pain, Shoulder Pain, Arm Pain, Back Pain, Hand Pain, Leg Pain, Foot Pain, Other. Skin Denies: Rash, Lesions, Jaundice, Bruising, Other. Neurological Denies: Weakness, Numbness, Incoordination, Change in speech, Confusion, Seizures, Other. Physical Exam Vital Signs / I&Os Vital Signs Date Time Temp Pulse Resp B/P Pulse O2 O2 Flow FiO2 Ox Delivery Rate 04/22 1446 98.2 94 12 124/38 99 04/22 1115 97.0 97 14 118/63 100 Room Air 04/22 0649 98.4 103 9 93/53 100 Room Air 08 0221 98.1 82 16 105/60 96 Room Air 0.0 04/21 2136 98.2 79 16 97/48 96 07 2024 Room Air 04/21 1832 98.2 65 16 107/40 100 I&O 04/21 0800 /07 1600 08 0000 Intake Total 1563 1825 600 Output Total 459 700 600 Balance 1104 1125 0 General Appearance Alert, No acute distress HEENT Atraumatic, Moist mucous membranes Lungs Clear to auscultation Cardiovascular Regular rate and rhythm, Normal S1 and S2 Abdomen - distended - positive fluid wave - no pain on palpation Extremities No edema, Normal pulses, No tenderness Skin No Breakdown Neurological Normal speech, Normal tone, Cranial nerves intact, No lateralizing signs Psych/Mental Status Mood normal LAB Results Laboratory Tests 04/22 0510 Chemistry Hemoglobin A1c % (4.5 - 6.2 %) 5.1 Assessment and Plan Problem List 1. Hepatic encephalopathy Status Acute Onset Date Unknown Plan Patient had elevated ammonia on admission Ammonia level was 1:15 Patient was treated with lactulose in an appropriate response Patient's mentation is normalized 2. 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 Hypotension Plan Patient initially presented with hypotension and needed to be placed in a Levothroid drip Patient is currently improved however she would be considered hypotensive patient is mentating normally however and does not have any evidence of volume depletion We'll introduce antihypertensives one by one We'll continue to monitor blood pressure continuously 4. Hyperammonemia Plan We'll continue with lactulose E&M Codes Rounding: Inpt-Moderate/80502
--- NOTE | 2017-04-22 16:42 | DIAGNOSTIC IMAGING REPORT ---
PROCEDURE: US PARACENTESIS INDICATION: Ascites. Distention. COMPARISON: None. TECHNIQUE: Informed consent was obtained and the patient was advised of the usual risks and complications including infection, bleeding and allergy. Supine position. PROCEDURE/FINDINGS: Portable study at bedside Following sterile preparation and 1% lidocaine local anesthetic, ultrasound guidance was utilized to place a 16-gauge angiocatheter in right upper anterior lateral abdomen. 5100 ml of clear chuy fluid was aspirated and sent for laboratory studies as requested (cytology). The patient tolerated the procedure well reasonably well and there were no complications. IMPRESSION: 1. Successful ultrasound-guided diagnostic/therapeutic paracentesis (5100 of clear chuy fluid).
[2017-04-22 18:38] VITALS: BP 116/50
[2017-04-22 22:41] VITALS: BP 105/69
[2017-04-23] VITALS (7 sets, daily range): BP systolic 91–105; BP diastolic 39–54
[2017-04-23] MEDS ORDERED: LACTULOSE PO (14:45)
--- NOTE | 2017-04-23 14:47 | Provider's Discharge Care Plan ---
Problem, Goal, Plan Problem List 1. Hepatic encephalopathy Instructions: - secondary to elevated ammonia levels - currently stable - continue taking lactulose 2. Altered mental status Instructions: - watch for altered mental status, most likely due to elevated ammonia levels 3. Hypotension Instructions: - continue with home medications
--- NOTE | 2017-04-23 16:58 | Discharge Summary ---
Discharge Summary Report Admit Date 04/18/17 Discharge Date 04/23/17 Admission Diagnosis Altered mental status hypotension Discharge Diagnosis Hyperammonia Brief History Please refer to admission H&P Hospital Course Patient was admitted and seen to have an elevated ammonia level. Patient was additionally seen to be hypotensive. Patient was placed in the levo fed drip and lactulose. Patient's ammonia level normalized within a day itself. Patient 's mentation improved on day 2. Patient was still very sedated and sleeping frequently. Patient was eventually titrated off of levo fed drip. Patient was introduced to her medications slowly. Patient was seen to have elevated abdominal girth secondary to liberal fluid administration due to hypotension. Patient was diuresed however still have significant amount of intra-abdominal ascites. Patient had a 5 L tap done by interventional radiology. Fluid was sent for analysis. Patient felt very well after the tap was able tolerate a diet. Patient was then seen to have a hemoglobin of 6.8. Patient had a 1 unit RBC transfer and patient did very well afterwards with an appropriate response. Patient is currently stable and will be discharged home. 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 She will resume all her home medication. And she will take lactulose from here on an General Appearance Alert, Oriented X3, No acute distress HEENT PERRLA, Mucous membran moist/pink Lungs Normal air movement Cardiovascular Normal S1, Normal S2 Abdomen Soft, No masses, - slightly distended - improved from hosptial stay Skin No Breakdown Neurological Normal speech, Normal tone, Sensation intact, Cranial nerves 3-12 NL Lab/Imaging Laboratory Tests 04/23 04/23 04/23 04/23 UNK 0400 0410 0410 Blood Gas Sample Site LR Total CO2 (24.0 - 30.0 mmol/L) 16.4 ABG pH (7.35 - 7.45) 7.34 ABG pCO2 at Pt Temp (35 - 45 mmHg) 28.9 ABG pO2 at Pt Temp (80.0 - 100.0 mmHg) 85.5 ABG HCO3 (20.0 - 26.0 mmol/L) 15.5 ABG O2 Sat Calc/[place] (95.1 - 100.0 %) 97.7 ABG Base Excess (-6.0 - -6.0 mmol/L) -9.6 ABG Reduced Hgb (%) 2.3 ABG Carboxyhemoglobin (0.5 - 1.5 %) 1.5 ABG Methemoglobin (0.4 - 1.5 %) 0.2 [place] Test YES Other Total Hgb (12.0 - 16.0 g/dL) 6.9 A-a O2 Gradient (7.0 - 14.0 mmHg) 30.1 Hgb O2 Saturation (95.0 - 100.0 %) 96.0 Respiration Rate (/MIN) 20 Vent Mode NC FiO2 (20 - 101 %) 21 Chemistry Plasma Sodium (136 - 145 mmol/L) 140 Plasma Potassium (3.5 - 5.1 mmol/L) 3.0 Plasma Chloride (98 - 107 mmol/L) 111 CO2 (Enzymatic) (21 - 32 mmol/L) 17 BUN (7 - 18 mg/dL) 9 Creatinine (0.6 - 1.3 mg/dL) 1.3 Est GFR ( Amer) (mL/min) 56.32 Est GFR (Non-Af Amer) (mL/min) 46.47 Glucose (70 - 110 mg/dL) 63 Plasma Calcium (8.5 - 10.1 mg/dL) 7.1 Total Bilirubin (0.0 - 1.0 mg/dL) 0.7 AST (15 - 37 U/L) 32 ALT (12 - 78 U/L) 21 Alkaline Phosphatase (46 - 116 U/L) 87 Total Protein (6.4 - 8.2 g/dL) 5.4 Albumin (3.3 - 5.0 g/dL) 1.5 TSH 3rd Generation (0.34 - 3.74 uIU/mL) 1.711 Hematology WBC (4.5 - 11.5 K/uL) Cancelled 2.1 RBC (4.00 - 5.20 M/uL) Cancelled 2.24 Hgb (12.0 - 16.0 gm/dL) Cancelled 6.8 Hct (36.0 - 46.0 %) Cancelled 20.2 MCV (80 - 100 fL) Cancelled 90 MCH (26 - 34 pg) Cancelled 30 RDW (11.6 - 14.8 %) Cancelled 15.2 Neut % (Auto) (50 - 75 %) 69.6 Lymph % (Auto) (25 - 40 %) 18.4 [place] % (Auto) (3 - 14 %) 10.7 Eos % (Auto) (0 - 4 %) 0.6 Baso % (Auto) (0 - 2 %) 0.7 Plt Count, EDTA (150 - 400 K/uL) Cancelled 54 RBC Morphology (20384 A) NORMOCHROMIC PUBS MCHC (31 - 37 g/dL) Cancelled 34 04/23 1338 Hematology WBC (4.5 - 11.5 K/uL) 3.9 RBC (4.00 - 5.20 M/uL) 3.00 Hgb (12.0 - 16.0 gm/dL) 9.2 Hct (36.0 - 46.0 %) 26.9 MCV (80 - 100 fL) 90 MCH (26 - 34 pg) 31 RDW (11.6 - 14.8 %) 15.1 Neut % (Auto) (50 - 75 %) 75.0 Lymph % (Auto) (25 - 40 %) 16.3 [place] % (Auto) (3 - 14 %) 8.0 Eos % (Auto) (0 - 4 %) 0.2 Baso % (Auto) (0 - 2 %) 0.5 Plt Count, EDTA (150 - 400 K/uL) 62 PUBS MCHC (31 - 37 g/dL) 34 Discharge Instructions/Meds - take medications as prescribed - follow up with your sheet metal duct installer helper
== END 2017-04-23 16:47 | disposition home or self-care (01) | DRG 442 ==
LOC: ED SRH 23:19 → TRANS SRH 04-18 05:02 → CC SRH 04-18 05:54
PROVIDERS: ADMIT Family Medicine
PROC: 02HV33Z Insertion of Infusion Device into Superior Vena Cava, Percutaneous Approach (ICD-10-PCS; 2017-04-18)
PROC: 0W9G3ZZ Drainage of Peritoneal Cavity, Percutaneous Approach (ICD-10-PCS; principal; 2017-04-22)
PROC: 30233N1 Transfusion of Nonautologous Red Blood Cells into Peripheral Vein, Percutaneous Approach (ICD-10-PCS; 2017-04-23)
DX: K72.90 Hepatic failure, unspecified without coma (principal); K74.69 Other cirrhosis of liver; R18.8 Other ascites; B18.2 Chronic viral hepatitis C; R71.0 Precipitous drop in hematocrit; I95.9 Hypotension, unspecified